=== PATIENT | female | born 1990 | race Caucasian/White ===

== ENCOUNTER 2021-11-05 13:00 | Emergency (ER) | payer OTHER ==
[~2021-11-05] VITALS: Ht 175.3 cm; Wt 88.6 kg
[2021-11-05 13:06] VITALS: BP 133/80
[2021-11-05] MEDS ORDERED: diazePAM 5MG TABLET PO ONE (15:25)
[2021-11-05] MEDS ORDERED: KETOROLAC 60MG 2ML VIAL IM ONE (15:25)
[2021-11-05] MEDS ORDERED: LIDOCAINE 5% (LIDODERM) PATCH TD ONE (15:25)
[2021-11-05] MEDS ORDERED: ACETAMINOPHEN 500 MG TAB PO ONE (15:25)
[2021-11-05] MEDS ORDERED: LIDO5DIS41 TD (15:57)
[2021-11-05] MEDS ORDERED: METH-1164 PO (15:57)
[2021-11-05] MEDS ORDERED: IBUP80TA PO (15:57)
[2021-11-05] MEDS ORDERED: **NOTE PATIENT COMMENT** MISC XX SCH (21:00)
[2021-11-06] MEDS ORDERED: **NOTE PATIENT COMMENT** MISC XX ONE (03:00)
== END 2021-11-05 16:12 | disposition home or self-care (01) ==
LOC: M ED 13:00
DX: M51.27 Other intervertebral disc displacement, lumbosacral region (principal); M51.26 Other intervertebral disc displacement, lumbar region
CPT/HCPCS: 72131; 96372; 99282; J1885